=== PATIENT | female | born 1985 | race Caucasian/White ===

== ENCOUNTER 2018-10-01 21:24 | Emergency (ER) | payer OTHER ==
[~2018-10-01] VITALS: Ht 165.1 cm; Wt 53.0 kg
[2018-10-01] MEDS ORDERED: CEPH-572 PO (22:42)
[2018-10-01] MEDS ORDERED: TETanus/Pertussis (Acell)/Diphther VAC/PF (Tdap-Adult) 0.5ml syringe IMVAC ONE (22:45)
[2018-10-01 23:15] VITALS: BP 109/63
== END 2018-10-01 23:18 | disposition home or self-care (01) ==
LOC: ER 21:25
DX: S61.432A Puncture wound without foreign body of left hand, initial encounter (principal); W26.8XXA Contact with other sharp object(s), not elsewhere classified, initial encounter; Y93.89 Activity, other specified; Y92.89 Other specified places as the place of occurrence of the external cause; Y99.8 Other external cause status
CPT/HCPCS: 90471; 90715; 99283